=== PATIENT | female | born 1990 | race African-American/Black ===

== ENCOUNTER 2023-07-12 13:18 | Emergency (ER) | payer MEDICAID ==
[~2023-07-12] VITALS: Ht 170.2 cm; Wt 93.6 kg
[~2023-07-12 13:18] MED LIST: PREN-129
[2023-07-12 13:28] VITALS: RESP 15; O2SAT 99
[2023-07-12 13:39] VITALS: BP 110/63; PULSE 81; RESP 15; TEMP 97.7; O2SAT 99
== END 2023-07-12 13:36 | disposition home or self-care (01) ==
LOC: ER 13:18
DX: Z11.1 Encounter for screening for respiratory tuberculosis (principal); Z79.899 Other long term (current) drug therapy